=== PATIENT | female | born 1980 | race Caucasian/White ===

== ENCOUNTER 2023-02-08 13:05 | Outpatient (CLI) | payer OTHER, BC | END 2023-02-08 23:59 | disposition short-term general hospital (02) | LOC: EMS 13:05 | DX: R41.0 Disorientation, unspecified (principal); M54.2 Cervicalgia; S00.81XA Abrasion of other part of head, initial encounter; M25.552 Pain in left hip; M54.50 Low back pain, unspecified; H53.9 Unspecified visual disturbance; V43.53XA Car driver injured in collision with pick-up truck in traffic accident, initial encounter; Y92.413 State road as the place of occurrence of the external cause | CPT/HCPCS: A0425; A0427 ==